=== PATIENT | male | born 1965 ===

== ENCOUNTER 2019-05-17 09:44 | Outpatient (CLI) | payer OTHER ==
[~2019-05-17 09:44] MED LIST: DOLOGEN CAPLET1 EACH PO
== END 2019-05-17 09:51 | disposition home or self-care (01) ==
LOC: LAB 09:44
DX: K57.32 Diverticulitis of large intestine without perforation or abscess without bleeding (principal)

== ENCOUNTER 2019-05-17 09:45 | Outpatient (CLI) | payer OTHER | END 2019-05-17 17:00 | disposition home or self-care (01) | LOC: TOM 09:45 | DX: K57.32 Diverticulitis of large intestine without perforation or abscess without bleeding (principal) ==

== ENCOUNTER 2019-06-14 14:04 | Outpatient (CLI) | payer OTHER | END 2019-06-14 17:00 | disposition home or self-care (01) | LOC: RAD 14:04 | DX: K57.32 Diverticulitis of large intestine without perforation or abscess without bleeding (principal) ==

== ENCOUNTER 2019-06-25 11:30 | Inpatient (IN) | payer OTHER ==
[~2019-06-25] VITALS: Ht 175.3 cm; Wt 81.6 kg
[2019-06-25] MEDS ORDERED: CRESTOR10 MG PO (15:15)
[2019-07-04] MEDS ORDERED: HYOSCYAMINE0.125 M1 SL (13:06)
[2019-07-04] MEDS ORDERED: OXYC1TAB9 PO (13:06)
[2019-07-04] MEDS ORDERED: NORFLEX100MG PO (13:06)
== END 2019-07-04 14:18 | disposition home or self-care (01) | DRG 331 ==
LOC: O/R 11:30 → SURH 07-01 07:45 → O/R 07-01 11:30 → SURG 07-01 13:19 → SURH 07-01 15:35
PROVIDERS: ADMIT Surgery
PROC: 0DJD8ZZ Inspection of Lower Intestinal Tract, Via Natural or Artificial Opening Endoscopic (ICD-10-PCS; 2019-07-01)
PROC: 0DTN4ZZ Resection of Sigmoid Colon, Percutaneous Endoscopic Approach (ICD-10-PCS; principal; 2019-07-01 07:00)
DX: K57.32 Diverticulitis of large intestine without perforation or abscess without bleeding (principal)

== ENCOUNTER 2021-06-01 11:07 | Outpatient (CLI) | payer OTHER ==
[~2021-06-01 11:07] MED LIST changes: +CRESTOR10 MG PO; +HYOSCYAMINE0.125 M1 SL; +NORFLEX100MG PO; +OXYC1TAB9 PO
== END 2021-06-01 11:11 | disposition home or self-care (01) ==
LOC: RAD 11:07
DX: R05 Cough (principal)

== ENCOUNTER 2021-06-15 15:09 | Outpatient (CLI) | payer OTHER | END 2021-06-15 15:19 | disposition home or self-care (01) | LOC: TOM 15:09 | PROVIDERS: ATTEND Internal Medicine Pulmonary Disease | DX: Q33.8 Other congenital malformations of lung (principal); R05 Cough; R91.1 Solitary pulmonary nodule ==

== ENCOUNTER 2022-02-25 12:26 | Outpatient (CLI) | payer OTHER | END 2022-02-25 12:35 | disposition home or self-care (01) | LOC: RAD 12:26 | PROVIDERS: ATTEND Specialist | DX: M15.0 Primary generalized (osteo)arthritis (principal); M77.12 Lateral epicondylitis, left elbow ==

== ENCOUNTER 2023-05-31 14:55 | Outpatient (CLI) | payer OTHER ==
[~2023-05-31 14:55] MED LIST changes: +DICLOFENAC POTA50 MG PO
== END 2023-05-31 15:07 | disposition home or self-care (01) ==
LOC: TOM 14:55
PROVIDERS: ATTEND General Practice
DX: G44.221 Chronic tension-type headache, intractable (principal)